=== PATIENT | female | born 1980 | race Caucasian/White ===

== ENCOUNTER → 2018-05-20 | Outpatient (CLI) | payer OTHER | END | disposition home or self-care (01) | LOC: CVU 06:40 | PROVIDERS: ATTEND Registered Nurse | DX: I11.9 Hypertensive heart disease without heart failure (principal) | CPT/HCPCS: 0399T; 93306 ==

== ENCOUNTER 2020-04-01 09:44 | Emergency (ER) | payer OTHER ==
[~2020-04-01] VITALS: Ht 167.6 cm; Wt 127.6 kg
[2020-04-01] MEDS ORDERED: ONDANSETRON 2MG/ML, 2ML ONE (10:22)
[2020-04-01] MEDS ORDERED: MORPHINE SULFATE 4 MG/ML, 1ML ONE ×2 (10:23→11:32)
[2020-04-01] MEDS ORDERED: SODIUM CHLORIDE 0.9%, 500ML IVBOLUS ONE (10:30)
[2020-04-01] MEDS ORDERED: SODIUM CHLORIDE FLUSH 10ML SYR IVF ONE (10:30)
[2020-04-01] MEDS ORDERED: ONDANSETRON 2MG/ML, 2ML IVPush ONE (10:30)
[2020-04-01] MEDS: MORPHINE SULFATE 4 MG/ML, 1ML IVPush PRN ×2 (10:40→11:38)
--- NOTE | 2020-04-01 10:41 | NUR ---
clean catch ua collected-sent for analysis piv placed from which labs were drawn-sent for analysis
--- NOTE | 2020-04-01 11:01 | NUR ---
post medication-pain improved to 1/10
[2020-04-01 11:14] LABS: BASOPHILS % (AUTO) 1 % (0-1); EOSINOPHILS % (AUTO) 9 % (1-7); LYMPHOCYTES % (AUTO) 19 % (22-44); MEAN CORPUSCULAR HEMOGLOBIN 30.1 pg (27.0-34.8); MEAN PLATELET VOLUME 8.3 fL (7.4-10.4); MONOCYTES % (AUTO) 5 % (2-9); NEUTROPHILS % (AUTO) 65 % (42-75); PLATELET COUNT 351 x10^3/uL (130-400); RED BLOOD COUNT 4.84 x10^6/uL (3.82-5.3); RED CELL DISTRIBUTION WIDTH 13.5 % (9.6-15.2)
[2020-04-01 11:15] LABS: HCG UR SG 1.008 (1.003-1.030); MICROSCOPIC AUTO
[2020-04-01 11:17] LABS: MD NO
[2020-04-01 11:25] LABS: CHLORIDE 108 mmol/L (98-107)
[2020-04-01 11:33] LABS: ALANINE AMINOTRANSFERASE 50 U/L (12-78); ALKALINE PHOSPHATASE 126 U/L (45-117); ANION GAP 9 mmol/L (5-15); BILIRUBIN,TOTAL 0.7 mg/dL (0.2-1.0); CALCIUM 9.2 mg/dL (8.5-10.1); CREATININE 0.97 mg/dL (0.55-1.02)
--- NOTE | 2020-04-01 11:40 | NUR ---
ct called to expedite imaging re-medicated for increase in llq pain
--- NOTE | 2020-04-01 11:56 | NUR ---
TO CT SCAN
[2020-04-01] MEDS ORDERED: OMNIPAQUE 350 MG/ML, 100ML BOTTLE ONE (12:11)
[2020-04-01 13:12] VITALS: BP 128/79
== END 2020-04-01 13:15 | disposition home or self-care (01) ==
LOC: ED 12:35
DX: A09 Infectious gastroenteritis and colitis, unspecified (principal); K92.1 Melena; R12 Heartburn
CPT/HCPCS: 36415; 74177; 80053; 81001; 81025; 83690; 85025; 87086; 87147; 96361; 96374; 96375; 96376; 99285; J2270; J2405; J7040; Q9967